=== PATIENT | male | born 1990 | race Caucasian/White ===

== ENCOUNTER 2023-05-23 00:14 | Emergency (ER) | payer SELFPAY ==
[2023-05-23 00:24] VITALS: PULSE 85; RESP 20; TEMP 98.2; BMI 27.9
[2023-05-23] MEDS ORDERED: ONDANSETRON 4 MG/2 ML VIAL IVPUSH ONE (00:34)
[2023-05-23] MEDS ORDERED: SODIUM CHLORIDE 0.9% 500 ML INFUS.BAG IV ONE (00:35)
[2023-05-23] MEDS ORDERED: PANTOPRAZOLE SODIUM 40 MG VIAL IVPUSH ONE (00:35)
[2023-05-23] MEDS ORDERED: LACTATED RINGERS SOLUTION 1000 ML INFUS.BAG IV ONE (00:37)
[2023-05-23] MEDS ORDERED: PANTOPRAZOLE SODIUM 40 MG VIAL ONE (00:42)
[2023-05-23] MEDS ORDERED: ONDANSETRON 4 MG/2 ML VIAL ONE (00:42)
[2023-05-23 00:53] LABS: BASO % 0.3 % (0-2.0); EOS % 0.9 % (0-4.5); HEMATOCRIT 42.1 % (35.4-49); HEMOGLOBIN 14.1 GM/dL (11.7-16.9); LYMPH % 19.2 % (8-40); MCH 31.4 pg (25.7-33.7); MCHC 33.5 g/dl (32.0-35.9); MEAN CELL VOLUME 93.7 fl (80-96); MEAN PLT VOLUME 9.6 fl (7.5-11.1); MONO % 5.5 % (3.8-10.2); NEUT % 74.1 % (42.8-82.8); PLATELET COUNT 219 10^3/uL (134-434); RBC 4.49 M/mm3 (4.00-5.60); RDW 13.9 % (11.9-15.9); WHITE BLOOD COUNT 6.9 K/mm3 (4.0-10.0)
[2023-05-23 01:15] LABS: INR 0.86 (0.83-1.09)
[2023-05-23 01:18] LABS: ACTIVATED PTT 24.9 SECONDS (25.2-36.5)
[2023-05-23 01:19] LABS: POTASSIUM 4.1 mmol/L (3.5-5.1)
[2023-05-23 01:21] LABS: CALCIUM 8.6 mg/dL (8.5-10.1)
[2023-05-23 01:22] LABS: ALBUMIN 3.6 g/dl (3.4-5.0); BLOOD UREA NITROGEN 23.6 mg/dL (7-18); MAGNESIUM 2.1 mg/dL (1.8-2.4)
[2023-05-23 01:25] LABS: CREATININE 1.1 mg/dL (0.55-1.3)
[2023-05-23 01:26] VITALS: BP 116/72
[2023-05-23 01:26] LABS: BILIRUBIN,TOTAL 0.3 mg/dL (0.2-1)
== END 2023-05-23 03:15 | disposition home or self-care (01) ==
LOC: JER 00:14
PROC: 3E033GC Introduction of Other Therapeutic Substance into Peripheral Vein, Percutaneous Approach (ICD-10-PCS; principal; 2023-05-23)
PROC: 3E033GC Introduction of Other Therapeutic Substance into Peripheral Vein, Percutaneous Approach (ICD-10-PCS; 2023-05-23)
DX: K92.0 Hematemesis (principal); K92.2 Gastrointestinal hemorrhage, unspecified; F10.10 Alcohol abuse, uncomplicated; Z20.822 Contact with and (suspected) exposure to COVID-19; Y90.9 Presence of alcohol in blood, level not specified
CPT/HCPCS: 0241U-QW; 36415; 71045-TC-FY; 80053; 82272; 83690; 83735; 85025; 85610; 85730; 86850; 86900; 86901; 93005; 93010; 99285-25